=== PATIENT | male | born 1980 | race Caucasian/White ===

== ENCOUNTER 2023-06-04 14:07 | Observation (INO) ==
[2023-06-04] MEDS ORDERED: Lactated Ringers 1000 ml BAG 1,000 ML IV ONE (15:01)
[2023-06-04] MEDS ORDERED: Dexamethasone IV 4 MG/ML VIAL 1 ml VIAL IV SLOW PU ONE (15:01)
[2023-06-04] MEDS ORDERED: Clindamycin 900 MG/D5W BAG 900 MG/50 ML BAG IVPB ONE (16:46)
[2023-06-04 17:04] LABS: Rapid Strep Molecular Positive (Negative)
[2023-06-04 17:07] LABS: Hematocrit 45.5 % (38-53); Hemoglobin 15.4 g/dL (13.2-16.3); Mean Corpuscular Hemoglobin 29.2 pg (27-33); Mean Corpuscular Hgb Conc 33.9 g/dL (31-36); Mean Corpuscular Volume 86.1 fL (80-97); Mean Platelet Volume 8.2 fL (7.5-11.2); Platelet Count 336 10^3/uL (150-450); Red Blood Count 5.28 10^6/uL (4.06-5.63); Red Cell Distribution Width 13.6 % (12-17)
[2023-06-04 17:40] LABS: RBC Morphology Normal (Normal)
[2023-06-04 17:41] LABS: ABS Basophils 0.1 10^3/uL (0.0-0.1); ABS Eosinophils 0.1 10^3/uL (0.0-0.5); ABS Lymphocytes 1.9 10^3/uL (1.0-4.8); ABS Monocytes 2.3 10^3/uL (0.0-1.1); ABS Neutrophils 18.7 10^3/uL (1.5-7.6); ABS Nucleated RBC 0.03 10^3/ul; Eosinophil % 0.3 %; Lymphocyte % 8.2 %; Nucleated Red Blood Cells % 0.1 %/100WBC (0.0-0.8)
[2023-06-04 18:01] LABS: Albumin 4.5 g/dL (3.2-5.2); Albumin/Globulin Ratio 1.3 (1-3); Calcium 9.5 mg/dL (8.6-10.3); Creatinine, Serum 1.26 mg/dL (0.67-1.17); Globulin 3.5 g/dL (2-4); Potassium 4.2 mmol/L (3.5-5.0); Total Bilirubin 0.9 mg/dL (0.2-1.0); eGFR CKD-EPI 72.6 (>60)
[2023-06-04] MEDS ORDERED: Iohexol 350 (CONTRAST) 500 ML MDV IV ONE (18:56)
[2023-06-04] MEDS ORDERED: HYDROmorphone 0.5 MG/0.5 ML SYRINGE IV PRN (19:50)
[2023-06-04] MEDS ORDERED: HYDROmorphone 1 MG/1 ML SYRINGE IV PRN (19:51)
[2023-06-04] MEDS: Nicotine PATCH 14 MG/24 HR PATCH TRANSDERM SCH (23:17)
[2023-06-05] MEDS: Dexamethasone IV 4 MG/ML VIAL 1 ml VIAL IV SLOW PU SCH ×3 (02:35→18:24)
[2023-06-05] MEDS: Clindamycin 900 MG/D5W BAG 900 MG/50 ML BAG IVPB SCH ×4 (02:35→17:26)
[2023-06-05] MEDS: Lactated Ringers 1000 ml BAG 1,000 ML IV SCH ×2 (03:09→10:28)
[2023-06-05 05:58] LABS: Hematocrit 42.2 % (38-53); Hemoglobin 14.5 g/dL (13.2-16.3); Mean Corpuscular Hemoglobin 29.3 pg (27-33); Mean Corpuscular Hgb Conc 34.3 g/dL (31-36); Mean Corpuscular Volume 85.4 fL (80-97); Platelet Count 342 10^3/uL (150-450); Red Blood Count 4.94 10^6/uL (4.06-5.63); Red Cell Distribution Width 13.5 % (12-17); White Blood Count 23.4 10^3/uL (3.6-10.2)
[2023-06-05 06:21] LABS: Calcium 9.2 mg/dL (8.6-10.3); Creatinine, Serum 1.08 mg/dL (0.67-1.17); Potassium 4.3 mmol/L (3.5-5.0); eGFR CKD-EPI 87.3 (>60)
[2023-06-05] MEDS: Nicotine PATCH 14 MG/24 HR PATCH TRANSDERM SCH (10:29)
[2023-06-05 17:40] VITALS: BP 150/91
== END 2023-06-05 18:30 | disposition home or self-care (01) ==
LOC: EDHOLD 14:07 → ED 14:07 → SUATTDRO 19:46 → MED 06-05 02:14
PROVIDERS: ADMIT Family Medicine; ATTEND Hospitalist